=== PATIENT | female | born 1985 | race Caucasian/White ===

== ENCOUNTER 2021-01-22 13:27 | Emergency (ER) | payer OTHER ==
[~2021-01-22] VITALS: Ht 170.2 cm; Wt 74.8 kg
[2021-01-22 13:36] VITALS: BP_SYST 144
--- NOTE | 2021-01-22 13:41 | NUR ---
Patient to ER bed 2 to gown for evaluation. Side rails up. Report given to Rosa REID.
--- NOTE | 2021-01-22 13:45 | NUR ---
Pt walked in to ER with c/o left ankle pain, reports mechanical trip and fall approx 1 week ago. Swelling and bruise noted to left ankle, pain 6/10. States she is able to bear weight on it but it's uncomfortable. Denies any other trauma. V/S stable.
--- NOTE | 2021-01-22 13:55 | NUR ---
ER Dr. Vergara at bedside examining patient.
--- NOTE | 2021-01-22 14:03 | NUR ---
Patient transported to radiology via wheelchair, accompanied by staff.
[2021-01-22] MEDS ORDERED: IBUP-1969 PO (14:36)
[2021-01-22] MEDS ORDERED: HYDR-3917 PO (14:36)
--- NOTE | 2021-01-22 15:00 | NUR ---
Patient given written and verbal discharge instructions and verbalizes understanding. ER MD discussed with patient the results and treatment provided. Patient in stable condition. ID arm band removed. Rx of Motrin and Echola given. Patient educated on pain management and to follow up with PMD. Pain Scale 3. Opportunity for questions provided and answered. Medication side effect fact sheet provided.
[2021-01-22 15:01] VITALS: BP_SYST 144
== END 2021-01-22 15:00 | disposition home or self-care (01) ==
LOC: SED 13:27
DX: S93.402A Sprain of unspecified ligament of left ankle, initial encounter (principal); X50.1XXA Overexertion from prolonged static or awkward postures, initial encounter; Y93.89 Activity, other specified; Y92.89 Other specified places as the place of occurrence of the external cause; Y99.8 Other external cause status
CPT/HCPCS: 99284

== ENCOUNTER 2021-09-06 06:49 | Emergency (ER) | payer OTHER ==
[~2021-09-06] VITALS: Ht 170.2 cm; Wt 81.6 kg
[~2021-09-06 06:49] MED LIST: HYDR-3917 PO; IBUP-1969 PO
[2021-09-06 07:15] VITALS: BP_SYST 119
--- NOTE | 2021-09-06 07:15 | NUR ---
Patient to ER bed 7 for evaluation. Side rails up. Assumed care.
--- NOTE | 2021-09-06 07:15 | NUR ---
Pt. came in with c/o on and off lower abd. pain since last night with N/V, rates the pain 8/10 when occurs, currently no pain nor nausea, pt. confirmed by urine dip, unknown EDC
--- NOTE | 2021-09-06 07:20 | NUR ---
ER at bedside examining patient.
--- NOTE | 2021-09-06 07:37 | NUR ---
urine dip done, Dr. Schmidt cancelled UA
--- NOTE | 2021-09-06 07:50 | NUR ---
Patient ambulated to radiology, accompanied by staff.
[2021-09-06 08:29] LABS: BASOPHILS % (AUTO) 0.3 % (0.0-2.0); EOSINOPHILS # (AUTO) 0.5 K/uL (0.0-0.4); EOSINOPHILS % (AUTO) 4.4 % (0.0-4.0); HEMATOCRIT 36.1 % (36-48); HEMOGLOBIN 12.5 g/dL (12.0-16.0); LYMPHOCYTES % (AUTO) 18.2 % (20.5-51.5); MEAN CORPUSCULAR HEMOGLOBIN 30 pg (27-31); MEAN CORPUSCULAR HGB CONC 35 % (32-36); MEAN CORPUSCULAR VOLUME 87 fL (79.0-98.0); MONOCYTES # (AUTO) 0.4 K/uL (0.0-1.0); MONOCYTES % (AUTO) 4.1 % (1.7-9.3); NEUTROPHILS # (AUTO) 7.9 K/uL (1.8-7.7); PLATELET COUNT (AUTO) 267 K/uL (130-430); RED BLOOD CELL COUNT(AUTO) 4.15 MIL/uL (4.2-6.2); WHITE BLOOD COUNT (AUTO) 10.8 K/uL (4.8-10.8)
[2021-09-06 08:39] LABS: CALCIUM 8.5 mg/dL (8.4-11.0); CREATININE 0.64 mg/dL (0.55-1.30); POTASSIUM 3.4 mmol/L (3.5-5.1)
[2021-09-06 09:00] VITALS: BP_SYST 119
[2021-09-06 09:02] LABS: ALBUMIN 3.7 g/dL (3.4-4.8); C-REACTIVE PROTEIN QUANT 0.4 mg/dL (0-0.5); TOTAL BILIRUBIN 0.1 mg/dL (0.0-1.0)
--- NOTE | 2021-09-06 09:25 | NUR ---
Patient given written and verbal discharge instructions and verbalizes understanding. ER MD discussed with patient the results and treatment provided. Patient in stable condition. ID arm band removed. Rx of NONE given. Patient educated on pain management and to follow up with PMD. Pain Scale 0/10. Opportunity for questions provided and answered. Medication side effect fact sheet provided.
== END 2021-09-06 09:25 | disposition home or self-care (01) ==
LOC: SED 06:49
DX: O26.891 Other specified pregnancy related conditions, first trimester (principal); R10.30 Lower abdominal pain, unspecified; Z79.899 Other long term (current) drug therapy; Z3A.01 Less than 8 weeks gestation of pregnancy
CPT/HCPCS: 36415; 76801; 76817; 80053; 81002; 81025; 82150; 83605; 83690; 84702; 85025; 86140; 99284